=== PATIENT | male | born 1960 | race Caucasian/White ===

== ENCOUNTER 2020-10-03 18:10 | Inpatient (IN) ==
[2020-10-03] MEDS ORDERED: PIPERACILLIN/TAZOBACTAM 3,375 MG in SODIUM CHLORIDE 0.9% 100 ML IV STA (19:21)
[2020-10-03] MEDS ORDERED: SODIUM CHLORIDE 0.9% 500 ML IV STA (19:21)
[2020-10-03] MEDS ORDERED: methylPREDNISolone SOD SUC 125 MG/2 ML VIAL IV STA (19:21)
[2020-10-03] MEDS ORDERED: ONDANSETRON 4 MG/2 ML VIAL IV STA (19:21)
[2020-10-03] MEDS ORDERED: ACETAMINOPHEN 500 MG TABLET PO STA (19:49)
[2020-10-03 19:53] LABS: Basophils % 0.3 % (0.0-0.8); Eosinophils % 0.6 % (0.00-10.9); Hematocrit 51.2 VOL% (42.0-52.0); Hemoglobin 17.9 GM/DL (14.0-18.0); Immature Granulocytes % 0.3 %; Immature Granulocytes Absolute 0.02 #; Lymphocytes # 1.3 10*3/uL (1.4-4.0); Lymphocytes % 18.1 % (21.2-54.2); Mean Corpuscular Volume 89.5 FL (87-102); Mean Platelet Volume 9.9 FL (9.6-12.0); Monocytes % 10.7 % (1.7-12.7); Platelet Count 201 T/CUMM (130-400); Red Blood Count 5.72 MC/CUMM (3.8-5.5); Red Cell Distribution Width 12.8 % (9.3-17.3); White Blood Count 7.1 T/CUMM (4-12)
[2020-10-03 20:04] LABS: PT Patient Result 10.6 SECS (9.8-11.9)
[2020-10-03 20:25] LABS: Albumin 3.5 G/DL (3.4-5.0); Bilirubin,Total 1.3 MG/DL (0.2-1.0); Calcium 8.9 MG/DL (8.5-10.1); Ferritin 456.5 ng/ml (26-388); Osmolality,Calculated 261.7 MOS/KG (273-304); Potassium 3.7 MMOL/L (3.5-5.1); Total Protein 8.9 G/DL (6.4-8.3)
[2020-10-03] MEDS ORDERED: GLUCAGON 1 MG VIAL IM PRN (20:55)
[2020-10-03] MEDS ORDERED: DEXTROSE 50% 25 GM/50 ML VIAL IV PRN (20:55)
[2020-10-03] MEDS ORDERED: ONDANSETRON 4 MG/2 ML VIAL IV PRN (21:01)
[2020-10-03 22:39] LABS: Bilirubin,Urine Negative (Negative); Blood, Urine Small mg/dL (Negative); Glucose,Urine (UA) Negative (Negative); Ketones,Urine Negative (Negative); Mucus,Urine Occasional /LPF (Occasional); Nitrite,Urine Negative (Negative); Protein,Urine Negative; RBC,Urine 1 /HPF (0-4); Urine Appearance CLEAR (Clear); Urine Color Yellow (Yellow); Urine Specific Gravity 1.028 (1.001-1.035); Urine Urobilinogen < 2.0 EU/DL (0.2-1.0); WBC,Urine <1 /HPF (0-6)
[2020-10-03] MEDS: FAMOTIDINE 20 MG TABLET PO SCH (23:15)
[2020-10-03] MEDS: ASCORBIC ACID 500 MG TABLET PO SCH (23:15)
[2020-10-03] MEDS: ENOXAPARIN 40 MG/0.4 ML SYRINGE SUBCUT SCH (23:15)
[2020-10-03 23:25] LABS: Barbiturates Screen,Urine Negative (Negative); Benzodiazepines Screen,Urine Negative (Negative); Cannabinoid Screen,Urine Negative (Negative); Opiate Screen,Urine Negative (Negative); Phencyclidine Screen,Urine Negative (Negative)
[2020-10-04] MEDS: ALBUTEROL INHALER 18 GM INH SCH ×4 (00:42→19:55)
[2020-10-04] MEDS: cefTRIAXone 1,000 MG in SYRINGE 1 EACH IV SCH (04:47)
[2020-10-04] MEDS ORDERED: AZITHROMYCIN INJ 500 MG in SODIUM CHLORIDE 0.9% 250 ML IV ONE (05:00)
[2020-10-04 05:53] LABS: Basophils % 0.2 % (0.0-0.8); Hematocrit 50.9 VOL% (42.0-52.0); Immature Granulocytes % 0.4 %; Immature Granulocytes Absolute 0.02 #; Lymphocytes % 20.9 % (21.2-54.2); Mean Corpuscular HGB Conc 33.4 GM/DL (32-36); Mean Corpuscular Volume 91.5 FL (87-102); Mean Platelet Volume 10.3 FL (9.6-12.0); Monocytes % 1.5 % (1.7-12.7); Platelet Count 204 T/CUMM (130-400); Red Blood Count 5.56 MC/CUMM (3.8-5.5); Red Cell Distribution Width 12.7 % (9.3-17.3); White Blood Count 4.6 T/CUMM (4-12)
[2020-10-04 06:09] LABS: Bilirubin,Total 0.7 MG/DL (0.2-1.0); Calcium 8.8 MG/DL (8.5-10.1); Ferritin 406.3 ng/ml (26-388); Osmolality,Calculated 271.4 MOS/KG (273-304); Potassium 4.3 MMOL/L (3.5-5.1); Total Protein 8.1 G/DL (6.4-8.3)
[2020-10-04] MEDS ORDERED: GLUCAGON 1 MG VIAL IM PRN (07:48)
[2020-10-04] MEDS ORDERED: DEXTROSE 50% 25 GM/50 ML VIAL IV PRN (07:48)
[2020-10-04] MEDS: DEXAMETHASONE 4 MG/1 ML VIAL IV SCH (08:55)
[2020-10-04] MEDS: ASCORBIC ACID 500 MG TABLET PO SCH ×2 (08:55→21:31)
[2020-10-04] MEDS: FAMOTIDINE 20 MG TABLET PO SCH ×2 (08:55→21:31)
[2020-10-04] MEDS: CETIRIZINE 10 MG TABLET PO SCH (08:56)
[2020-10-04] MEDS: CHOLECALCIFEROL 1,000 UNIT TABLET PO SCH (08:56)
[2020-10-04] MEDS: ZINC GLUCONATE 50 MG TABLET PO SCH (08:56)
[2020-10-04] MEDS: INSULIN LISPRO 100 UNIT/ML SUBCUT SCH ×3 (11:29→21:31)
[2020-10-04] MEDS: ENOXAPARIN 40 MG/0.4 ML SYRINGE SUBCUT SCH (21:32)
[2020-10-05] MEDS: ALBUTEROL INHALER 18 GM INH SCH ×4 (00:59→20:40)
[2020-10-05] MEDS: ACETAMINOPHEN 325 MG TABLET PO PRN ×3 (01:00→17:13)
[2020-10-05] MEDS: cefTRIAXone 1,000 MG in SYRINGE 1 EACH IV SCH (05:18)
[2020-10-05 05:50] LABS: Basophils % 0.2 % (0.0-0.8); Hematocrit 47.9 VOL% (42.0-52.0); Hemoglobin 16.6 GM/DL (14.0-18.0); Immature Granulocytes % 0.7 %; Immature Granulocytes Absolute 0.12 #; Lymphocytes # 1.7 10*3/uL (1.4-4.0); Lymphocytes % 9.4 % (21.2-54.2); Mean Corpuscular HGB Conc 34.7 GM/DL (32-36); Mean Corpuscular Volume 90.7 FL (87-102); Mean Platelet Volume 10.4 FL (9.6-12.0); Monocytes % 8.3 % (1.7-12.7); Neutrophils % 81.4 % (38.7-73.9); Platelet Count 255 T/CUMM (130-400); Red Blood Count 5.28 MC/CUMM (3.8-5.5); Red Cell Distribution Width 12.9 % (9.3-17.3); White Blood Count 18.1 T/CUMM (4-12)
[2020-10-05 06:07] LABS: Calcium 8.6 MG/DL (8.5-10.1); Ferritin 384.6 ng/ml (26-388); Osmolality,Calculated 276.7 MOS/KG (273-304); Potassium 4.1 MMOL/L (3.5-5.1)
[2020-10-05] MEDS: DEXAMETHASONE 4 MG/1 ML VIAL IV SCH (09:11)
[2020-10-05] MEDS: CETIRIZINE 10 MG TABLET PO SCH (09:11)
[2020-10-05] MEDS: AZITHROMYCIN 250 MG TABLET PO SCH (09:12)
[2020-10-05] MEDS: ASCORBIC ACID 500 MG TABLET PO SCH ×2 (09:12→20:40)
[2020-10-05] MEDS: FAMOTIDINE 20 MG TABLET PO SCH ×2 (09:12→20:40)
[2020-10-05] MEDS: ZINC GLUCONATE 50 MG TABLET PO SCH (09:12)
[2020-10-05] MEDS: CHOLECALCIFEROL 1,000 UNIT TABLET PO SCH (09:12)
[2020-10-05] MEDS: INSULIN LISPRO 100 UNIT/ML SUBCUT SCH ×4 (09:45→22:09)
[2020-10-05] MEDS ORDERED: SODIUM CHLORIDE 0.9% 1,000 ML IV PRN (10:31)
[2020-10-05] MEDS ORDERED: IBUPROFEN 400 MG TABLET PO PRN (18:42)
[2020-10-05] MEDS: ENOXAPARIN 40 MG/0.4 ML SYRINGE SUBCUT SCH (21:30)
[2020-10-05] MEDS: DILTIAZEM CD 180 MG CAPSULE PO SCH (22:09)
[2020-10-06] MEDS: ALBUTEROL INHALER 18 GM INH SCH ×4 (02:28→18:26)
[2020-10-06] MEDS: cefTRIAXone 1,000 MG in SYRINGE 1 EACH IV SCH (05:48)
[2020-10-06 06:52] LABS: Calcium 8.7 MG/DL (8.5-10.1); Osmolality,Calculated 277.5 MOS/KG (273-304)
[2020-10-06] MEDS: INSULIN LISPRO 100 UNIT/ML SUBCUT SCH ×4 (07:50→21:41)
[2020-10-06] MEDS: ACETAMINOPHEN 325 MG TABLET PO PRN ×2 (08:20→21:33)
[2020-10-06] MEDS: ASCORBIC ACID 500 MG TABLET PO SCH ×2 (08:20→21:32)
[2020-10-06] MEDS: ZINC GLUCONATE 50 MG TABLET PO SCH (08:20)
[2020-10-06] MEDS: CHOLECALCIFEROL 1,000 UNIT TABLET PO SCH (08:20)
[2020-10-06] MEDS: AZITHROMYCIN 250 MG TABLET PO SCH (08:20)
[2020-10-06] MEDS: FAMOTIDINE 20 MG TABLET PO SCH ×2 (08:20→21:32)
[2020-10-06] MEDS: CETIRIZINE 10 MG TABLET PO SCH (08:21)
[2020-10-06] MEDS: DEXAMETHASONE 4 MG/1 ML VIAL IV SCH (08:21)
[2020-10-06] MEDS ORDERED: REMDESIVIR 200 MG in SODIUM CHLORIDE 0.9% 210 ML IV ONE (12:00)
[2020-10-06] MEDS: DILTIAZEM CD 180 MG CAPSULE PO SCH (21:31)
[2020-10-06] MEDS: ENOXAPARIN 40 MG/0.4 ML SYRINGE SUBCUT SCH (21:32)
[2020-10-06] MEDS: MELATONIN 3 MG TABLET PO PRN (21:33)
[2020-10-07] MEDS: ALBUTEROL INHALER 18 GM INH SCH ×4 (00:14→20:36)
[2020-10-07] MEDS: cefTRIAXone 1,000 MG in SYRINGE 1 EACH IV SCH (04:12)
[2020-10-07] MEDS: REMDESIVIR 100 MG in SODIUM CHLORIDE 0.9% 100 ML IV SCH (08:06)
[2020-10-07] MEDS: INSULIN LISPRO 100 UNIT/ML SUBCUT SCH ×4 (08:06→20:37)
[2020-10-07] MEDS: DEXAMETHASONE 4 MG/1 ML VIAL IV SCH (08:06)
[2020-10-07] MEDS: AZITHROMYCIN 250 MG TABLET PO SCH (08:07)
[2020-10-07] MEDS: CETIRIZINE 10 MG TABLET PO SCH (08:07)
[2020-10-07] MEDS: ZINC GLUCONATE 50 MG TABLET PO SCH (08:07)
[2020-10-07] MEDS: FAMOTIDINE 20 MG TABLET PO SCH ×2 (08:07→21:47)
[2020-10-07] MEDS: ASCORBIC ACID 500 MG TABLET PO SCH ×2 (08:07→21:47)
[2020-10-07] MEDS: CHOLECALCIFEROL 1,000 UNIT TABLET PO SCH (08:07)
[2020-10-07] MEDS ORDERED: DILTIAZEM CD 120 MG CAPSULE PO SCH (11:59)
[2020-10-07] MEDS: ENOXAPARIN 40 MG/0.4 ML SYRINGE SUBCUT SCH (21:47)
[2020-10-07] MEDS: MELATONIN 3 MG TABLET PO PRN (21:48)
[2020-10-07] MEDS: ACETAMINOPHEN 325 MG TABLET PO PRN (21:48)
[2020-10-08] MEDS: ALBUTEROL INHALER 18 GM INH SCH ×4 (00:41→19:30)
[2020-10-08] MEDS: cefTRIAXone 1,000 MG in SYRINGE 1 EACH IV SCH (05:07)
[2020-10-08 05:54] LABS: Basophils % 0.2 % (0.0-0.8); Hemoglobin 15.6 GM/DL (14.0-18.0); Immature Granulocytes % 0.4 %; Immature Granulocytes Absolute 0.04 #; Lymphocytes # 1.5 10*3/uL (1.4-4.0); Lymphocytes % 16.7 % (21.2-54.2); Mean Corpuscular HGB Conc 34.7 GM/DL (32-36); Mean Corpuscular Volume 89.3 FL (87-102); Monocytes % 8.5 % (1.7-12.7); Neutrophils % 74.2 % (38.7-73.9); Platelet Count 314 T/CUMM (130-400); Red Blood Count 5.04 MC/CUMM (3.8-5.5)
[2020-10-08 06:25] LABS: Calcium 8.5 MG/DL (8.5-10.1); Osmolality,Calculated 283.4 MOS/KG (273-304); Potassium 3.8 MMOL/L (3.5-5.1)
[2020-10-08 07:29] LABS: Band Neutrophils 1 % (0-10); Hypochromasia 1+; Lymphocytes 17 % (20-55); Microcytosis Slight; Segmented Neutrophils 77 % (50-85); Total Cells Counted 100
[2020-10-08 07:32] LABS: Platelet Estimate Normal
[2020-10-08] MEDS: DEXAMETHASONE 4 MG/1 ML VIAL IV SCH (08:37)
[2020-10-08] MEDS: CHOLECALCIFEROL 1,000 UNIT TABLET PO SCH (08:37)
[2020-10-08] MEDS: ASCORBIC ACID 500 MG TABLET PO SCH ×2 (08:37→20:42)
[2020-10-08] MEDS: FAMOTIDINE 20 MG TABLET PO SCH ×2 (08:37→20:42)
[2020-10-08] MEDS: ZINC GLUCONATE 50 MG TABLET PO SCH (08:38)
[2020-10-08] MEDS: AZITHROMYCIN 250 MG TABLET PO SCH (08:38)
[2020-10-08] MEDS: REMDESIVIR 100 MG in SODIUM CHLORIDE 0.9% 100 ML IV SCH (08:38)
[2020-10-08] MEDS: CETIRIZINE 10 MG TABLET PO SCH (08:38)
[2020-10-08] MEDS: INSULIN LISPRO 100 UNIT/ML SUBCUT SCH ×4 (08:46→20:42)
[2020-10-08] MEDS ORDERED: FUROSEMIDE 40 MG/4 ML VIAL IV ONE (10:43)
[2020-10-08] MEDS: MELATONIN 3 MG TABLET PO PRN (20:42)
[2020-10-08] MEDS: ENOXAPARIN 40 MG/0.4 ML SYRINGE SUBCUT SCH (20:42)
[2020-10-09] MEDS: ALBUTEROL INHALER 18 GM INH SCH ×4 (00:11→19:15)
[2020-10-09] MEDS: cefTRIAXone 1,000 MG in SYRINGE 1 EACH IV SCH (04:11)
[2020-10-09 04:12] LABS: Basophils % 0.2 % (0.0-0.8); Hematocrit 45.4 VOL% (42.0-52.0); Hemoglobin 16.1 GM/DL (14.0-18.0); Immature Granulocytes % 1.1 %; Lymphocytes # 1.6 10*3/uL (1.4-4.0); Lymphocytes % 16.5 % (21.2-54.2); Mean Corpuscular HGB Conc 35.5 GM/DL (32-36); Mean Corpuscular Volume 88.2 FL (87-102); Mean Platelet Volume 10.8 FL (9.6-12.0); Monocytes % 12.3 % (1.7-12.7); Neutrophils % 69.9 % (38.7-73.9); Platelet Count 363 T/CUMM (130-400); Red Blood Count 5.15 MC/CUMM (3.8-5.5); Red Cell Distribution Width 12.9 % (9.3-17.3); White Blood Count 9.4 T/CUMM (4-12)
[2020-10-09 04:37] LABS: Calcium 8.7 MG/DL (8.5-10.1); Osmolality,Calculated 278.8 MOS/KG (273-304); Potassium 3.6 MMOL/L (3.5-5.1)
[2020-10-09 04:47] LABS: Platelet Estimate Normal
[2020-10-09] MEDS: CHOLECALCIFEROL 1,000 UNIT TABLET PO SCH (09:04)
[2020-10-09] MEDS: DEXAMETHASONE 4 MG/1 ML VIAL IV SCH (09:04)
[2020-10-09] MEDS: FAMOTIDINE 20 MG TABLET PO SCH ×2 (09:04→20:31)
[2020-10-09] MEDS: ASCORBIC ACID 500 MG TABLET PO SCH ×2 (09:05→20:31)
[2020-10-09] MEDS: REMDESIVIR 100 MG in SODIUM CHLORIDE 0.9% 100 ML IV SCH (09:05)
[2020-10-09] MEDS: CETIRIZINE 10 MG TABLET PO SCH (09:05)
[2020-10-09] MEDS: ZINC GLUCONATE 50 MG TABLET PO SCH (09:05)
[2020-10-09] MEDS: INSULIN LISPRO 100 UNIT/ML SUBCUT SCH ×4 (09:43→20:31)
[2020-10-09] MEDS: ENOXAPARIN 40 MG/0.4 ML SYRINGE SUBCUT SCH (20:31)
[2020-10-09] MEDS: MELATONIN 3 MG TABLET PO PRN (20:31)
[2020-10-10] MEDS: ALBUTEROL INHALER 18 GM INH SCH ×4 (00:40→19:38)
[2020-10-10] MEDS: cefTRIAXone 1,000 MG in SYRINGE 1 EACH IV SCH (04:58)
[2020-10-10] MEDS ORDERED: FUROSEMIDE 40 MG/4 ML VIAL IV ONE (07:42)
[2020-10-10] MEDS: ASCORBIC ACID 500 MG TABLET PO SCH ×2 (09:40→20:41)
[2020-10-10] MEDS: CHOLECALCIFEROL 1,000 UNIT TABLET PO SCH (09:40)
[2020-10-10] MEDS: CETIRIZINE 10 MG TABLET PO SCH (09:40)
[2020-10-10] MEDS: ZINC GLUCONATE 50 MG TABLET PO SCH (09:40)
[2020-10-10] MEDS: FAMOTIDINE 20 MG TABLET PO SCH ×2 (09:40→20:41)
[2020-10-10] MEDS: DEXAMETHASONE 4 MG/1 ML VIAL IV SCH (10:18)
[2020-10-10] MEDS: REMDESIVIR 100 MG in SODIUM CHLORIDE 0.9% 100 ML IV SCH (10:18)
[2020-10-10] MEDS: INSULIN LISPRO 100 UNIT/ML SUBCUT SCH ×4 (10:19→20:41)
[2020-10-10] MEDS: MELATONIN 3 MG TABLET PO PRN (20:40)
[2020-10-10] MEDS: ENOXAPARIN 40 MG/0.4 ML SYRINGE SUBCUT SCH (20:40)
[2020-10-11] MEDS: ALBUTEROL INHALER 18 GM INH SCH ×2 (00:07→08:22)
[2020-10-11] MEDS: cefTRIAXone 1,000 MG in SYRINGE 1 EACH IV SCH (04:17)
[2020-10-11] MEDS: INSULIN LISPRO 100 UNIT/ML SUBCUT SCH (07:50)
[2020-10-11] MEDS: ZINC GLUCONATE 50 MG TABLET PO SCH (08:21)
[2020-10-11] MEDS: ASCORBIC ACID 500 MG TABLET PO SCH (08:21)
[2020-10-11] MEDS: CHOLECALCIFEROL 1,000 UNIT TABLET PO SCH (08:21)
[2020-10-11] MEDS: DEXAMETHASONE 4 MG/1 ML VIAL IV SCH (08:21)
[2020-10-11] MEDS: FAMOTIDINE 20 MG TABLET PO SCH (08:22)
[2020-10-11] MEDS: CETIRIZINE 10 MG TABLET PO SCH (08:22)
[2020-10-11 12:06] VITALS: BP 155/97
== END 2020-10-11 15:17 | disposition home or self-care (01) | DRG 177 ==
LOC: N.ED 18:10 → SUATTDRO 21:01 → N.EDINP 21:01 → N.2E 21:38
PROVIDERS: ADMIT Internal Medicine; ATTEND Emergency Medicine